=== PATIENT | female | born 1940 | race Caucasian/White ===

== ENCOUNTER 2023-01-25 19:00 | Inpatient (IN) | payer MEDICARE, OTHER ==
[~2023-01-25] VITALS: Ht 157.5 cm; Wt 62.7 kg
[2023-01-25 19:22] VITALS: BP 110/64
--- NOTE | 2023-01-25 19:30 | NUR ---
RN RECEIVED REPORT FROM JOSÉ LEHMAN, FROM [facility]. PATIENT IS ALERT AND ORIENTED X4 AND VITAL SIGNS STABLE. PATIENT ARRIVED IN STABLE CONDITION. FAMILY AND PATIENT ORIENTED TO FLOOR AND REHAB PROGRAM. ADMISSION PENDING. ALL NEEDS MET AT THIS TIME. RN ENDORSED CONTINUATION OF CARE TO DENIS MANSFIELD, FOR THE CONTINUATION OF CARE.
[2023-01-26] MEDS ORDERED: RIVA20TA PO (00:06)
[2023-01-26] MEDS ORDERED: LEVO75TA7 PO (00:06)
[2023-01-26] MEDS ORDERED: METO25TA6 PO (00:06)
[2023-01-26] MEDS ORDERED: SIMV-49 PO (00:06)
[2023-01-26] MEDS ORDERED: FERR325T28 PO (00:06)
[2023-01-26] MEDS ORDERED: CALC500T88 PO (00:06)
[2023-01-26] MEDS ORDERED: OMEP40CA21 PO (00:06)
--- NOTE | 2023-01-26 00:55 | NUR ---
Received report from outgoing RN regarding Pt Evette Bush at beginning of Shift. Family (Daughter and grand-daughter were on bedside. They state that pt. speaks primarily Citizen Of [place]. Family provided number on board on which the can be reached. Pt. family indicate that only medications they would like to continue are Metoprolol, Lipitor, Xarelto (received in ER prior to transfer). 500 mg QID PRN ordered by Dr. Bhatt. Medication reconciliation started and On-Call physician notified at about 0015
[2023-01-26 04:51] VITALS: BP 127/62
--- NOTE | 2023-01-26 06:27 | NUR ---
Per on-call MD, AM provider can complete Med reconciliation
[2023-01-26 08:00] VITALS: BP 130/62
--- NOTE | 2023-01-26 09:32 | NUR ---
0700-Recd patient in bed, asleep, no respiratory distress. Patient wakes up on verbal commands, denies pain or discomfort. VSS, no s/s of hypo/HTN. Call light at reach and encouraged to use it every time help is needed. 0930-Patient ate breakfast, dennis. well, denies GI discomfort, no swallowing problems observed, speech clear. Supervision provided as needed. 0945-Patient was evaluated by PT, per PT patient did really well. Patient actively participated during therapy evaluation, ambulated with FWW and PT's close supervision. Fall precautions reminders provided, a clutter free/safe safe environment ensured.
[2023-01-26] MEDS ORDERED: RALO60TA PO (14:51)
[2023-01-26 15:58] VITALS: BP 148/65
[2023-01-26] MEDS: ACETAMINOPHEN ES 500 MG TABLET PO PRN (16:19)
[2023-01-26] MEDS: RIVAROXABAN 10 MG TABLET PO SCH (17:10)
[2023-01-26] MEDS: METOPROLOL TARTRATE 25 MG TABLET PO SCH ×2 (17:11→23:25)
[2023-01-26] MEDS: SIMVASTATIN 40 MG TABLET PO SCH (17:13)
--- NOTE | 2023-01-26 18:32 | NUR ---
1055-Orders finalized by . Patient was assessed and eval. by rehab for PT/OT skilled services. Patient was also seen by ST. Patient tolerated meals/oral intake well with no swallowing problems observed. Supervision and assist provided during meal times. Aspiration precautions observed. Patient with BRP, assisted to the restroom as needed. All needs anticipated and met. Fall precautions observed.
[2023-01-26 20:32] VITALS: BP 121/54
[2023-01-27 04:30] VITALS: BP 139/73
[2023-01-27] MEDS: METOPROLOL TARTRATE 25 MG TABLET PO SCH ×3 (05:52→17:21)
[2023-01-27] MEDS: PANTOPRAZOLE SODIUM 40 MG TABLET.DR PO SCH (06:28)
[2023-01-27] MEDS: LEVOTHYROXINE SODIUM 75 MCG TABLET PO SCH (06:28)
[2023-01-27 07:41] VITALS: BP 139/67
[2023-01-27 08:25] LABS: *BILIRUBIN,URIN NEGATIVE (NEGATIVE); *BLOOD, URINE 2+ (NEGATIVE); *CLARITY,URINE CLEAR (CLEAR); *COLOR,URINE Other (YELLOW); *KETONES,URINE 1+ (NEGATIVE); LEUKOCYTE ESTERASE ,URINE 2+ (NEGATIVE); NITRITE, URINE POSITIVE (NEGATIVE); PH,URINE 7.5 (5.0-8.0); UGLUCOSE NEGATIVE (NEGATIVE)
[2023-01-27] MEDS: ACETAMINOPHEN ES 500 MG TABLET PO PRN (08:54)
[2023-01-27] MEDS: FERROUS SULFATE 325 MG TABEC PO SCH (08:55)
[2023-01-27 09:00] LABS: HEMATOCRIT 33.2 % (31.2-41.9); MEAN CORPUSCULAR HEMOGLOBIN 29.4 uug (24.7-32.8); MEAN CORPUSCULAR VOLUME 92.5 fL (75.5-95.3); PLATELET COUNT (AUTO) 302 K/uL (179-408)
--- NOTE | 2023-01-27 10:46 | NUR ---
INTERDISCIPLINARY TEAM CONFERENCE
[2023-01-27] MEDS: CEphaleXIN 250 MG CAPSULE PO SCH ×2 (11:28→22:50)
[2023-01-27 12:22] LABS: CREATININE 0.8 mg/dL (0.6-1.3); POTASSIUM 3.6 mmol/L (3.5-5.1)
[2023-01-27 15:20] VITALS: BP 121/71
[2023-01-27] MEDS: SIMVASTATIN 40 MG TABLET PO SCH (17:21)
[2023-01-27] MEDS: RIVAROXABAN 10 MG TABLET PO SCH (17:26)
[2023-01-27] MEDS: GLUCERNA SHAKE 237 ML CAN PO SCH (17:27)
[2023-01-27] MEDS: RALOXIFENE HCL 60 MG TABLET PO SCH (17:35)
[2023-01-27 18:34] LABS: BACTERIA,URINE FEW /HPF (NONE SEEN)
[2023-01-27 18:35] LABS: SQUAMOUS EPITHELIAL CELL,UR FEW /HPF (NONE SEEN)
[2023-01-27 20:00] VITALS: BP 128/75
[2023-01-27] MEDS ORDERED: CEphaleXIN 250 MG CAPSULE ONE (22:48)
--- NOTE | 2023-01-27 22:52 | NUR ---
Keflex 250 mg i cap oral initiated for UTI. Will monitor possible adverse reaction.
[2023-01-28] MEDS: METOPROLOL TARTRATE 25 MG TABLET PO SCH ×4 (00:23→18:22)
[2023-01-28 04:00] VITALS: BP 105/31
[2023-01-28] MEDS ORDERED: CEphaleXIN 250 MG CAPSULE ONE (04:13)
[2023-01-28] MEDS: CEphaleXIN 250 MG CAPSULE PO SCH ×4 (05:17→21:00)
[2023-01-28] MEDS: LEVOTHYROXINE SODIUM 75 MCG TABLET PO SCH (05:19)
[2023-01-28] MEDS: PANTOPRAZOLE SODIUM 40 MG TABLET.DR PO SCH (05:19)
[2023-01-28 06:43] LABS: HEMATOCRIT 33.3 % (31.2-41.9); MEAN CORPUSCULAR HEMOGLOBIN 30.2 uug (24.7-32.8); MEAN CORPUSCULAR VOLUME 92.8 fL (75.5-95.3); PLATELET COUNT (AUTO) 327 K/uL (179-408)
[2023-01-28 07:27] LABS: CARBON DIOXIDE 26 mmol/L (21-32); CHLORIDE 102 mmol/L (98-107); CREATININE 0.8 mg/dL (0.6-1.3); GLUCOSE 105 mg/dL (74-106); PHOSPHOROUS 3.6 mg/dL (2.5-4.9); POTASSIUM 3.6 mmol/L (3.5-5.1); UREA NITROGEN, BLOOD 17 mg/dL (7-18)
[2023-01-28 07:46] VITALS: BP 114/74
[2023-01-28] MEDS: GLUCERNA SHAKE 237 ML CAN PO SCH ×2 (08:06→17:39)
[2023-01-28] MEDS: RALOXIFENE HCL 60 MG TABLET PO SCH (09:55)
[2023-01-28] MEDS: FERROUS SULFATE 325 MG TABEC PO SCH (09:55)
[2023-01-28] MEDS ORDERED: SENNOSIDES 1 TABLET PO PRN (10:15)
[2023-01-28] MEDS ORDERED: BISACODYL 10 MG SUPP.RECT RC PRN (10:15)
--- NOTE | 2023-01-28 10:31 | NUR ---
INDIVIDUALIZED PLAN OF CARE
--- NOTE | 2023-01-28 11:25 | NUR ---
Catalina from Neuro at pt's bedside, noted pt's Right ankle in pain on movement. Blaise Marquez NP already ordered an Xray. Will hold off on PT until Xray results are in. Will ice and elevate. Catalina noted that pt has Expressive Aphasia, calling Catalina's flashlight her friend and Catalina's cell phone her neighbor. Translated via pt's grandson Nelson.
--- NOTE | 2023-01-28 12:40 | NUR ---
My NIHSS score was 5 and others scored 0 and 2. Pt's grandson, Nelson, assisted in translating during test. After results I spoke with Gisell GUAN who confirmed what Catalina from Neuro said and what I found, that the pt has SEVERE APHASIA. Gisell stated that patient does seem to be improving, but that she is having speech and cognitive issues. I also spoke to an RN that had the pt a few days ago and her status seems unchanged. No signs of BEFAST noted at this time except the speech issues as discussed above. Will continue to monitor.
--- NOTE | 2023-01-28 14:58 | NUR ---
Per PT pt threw up a small amount just now. Nadia PT said that it was a little green, but no pill was observed. She had just taken her Keflex pill which has a green outside. Will continue to monitor.
[2023-01-28 16:07] VITALS: BP 132/58
[2023-01-28] MEDS ORDERED: REMEDY ESSENTIAL ZINC PASTE 113 GM TOP PRN (17:30)
[2023-01-28] MEDS: SIMVASTATIN 40 MG TABLET PO SCH (18:21)
[2023-01-28] MEDS: RIVAROXABAN 10 MG TABLET PO SCH (18:21)
[2023-01-28 20:00] VITALS: BP 131/48
[2023-01-29] MEDS: METOPROLOL TARTRATE 25 MG TABLET PO SCH ×5 (00:07→23:46)
[2023-01-29 03:45] VITALS: BP 119/69
[2023-01-29] MEDS: PANTOPRAZOLE SODIUM 40 MG TABLET.DR PO SCH (05:31)
[2023-01-29] MEDS: CEphaleXIN 250 MG CAPSULE PO SCH ×3 (05:31→21:03)
[2023-01-29] MEDS: LEVOTHYROXINE SODIUM 75 MCG TABLET PO SCH (05:31)
--- NOTE | 2023-01-29 05:42 | NUR ---
Slept well. No complaint presented all night. No significant event reported. VSS.
[2023-01-29 07:57] VITALS: BP 104/51
[2023-01-29] MEDS: RALOXIFENE HCL 60 MG TABLET PO SCH (08:22)
[2023-01-29] MEDS: GLUCERNA SHAKE 237 ML CAN PO SCH ×2 (08:22→17:09)
[2023-01-29] MEDS: FERROUS SULFATE 325 MG TABEC PO SCH (08:22)
[2023-01-29 14:30] VITALS: BP 39/64
[2023-01-29] MEDS: SIMVASTATIN 40 MG TABLET PO SCH (17:37)
[2023-01-29] MEDS: RIVAROXABAN 10 MG TABLET PO SCH (17:38)
--- NOTE | 2023-01-29 17:52 | NUR ---
0730-Rec'd patient in bed, asleep, able to wake up; patient able to wake up on verbal commands, Turkmen speaking, but able to understand Lebanese/simple questions asked. No respiratory distress, patient denies pain. Safety measures in place and call light at reach. 0900-Scheduled medications administered as ordered. No ASE noted; VSS, patient still eating breakfast and been assisted by her daughter; assist offered as needed. Routine rounds and frequent visual checks done. Encouraged to use call light for help every time needed. 1000-Patient OOB to her therapy/rehab session, patient ambulatory, cooperative and actively able to participate in her therapy. Fall precautions observed. A safe environment provided. 1300-Patient in room having lunch, daughter at bedside. 1730-Patient having dinner/food brought from outside with her daughter and another visitor. Patient in stable baseline status, no MATTHEW or unusual findings/and/or observations during shift. Assist as needed.
[2023-01-29 20:00] VITALS: BP 132/44
[2023-01-29 20:57] VITALS: BP 125/51
[2023-01-30 04:00] VITALS: BP 129/69
[2023-01-30 04:05] VITALS: BP 129/69
[2023-01-30] MEDS: CEphaleXIN 250 MG CAPSULE PO SCH ×3 (05:26→21:58)
[2023-01-30] MEDS: METOPROLOL TARTRATE 25 MG TABLET PO SCH ×3 (05:26→18:21)
--- NOTE | 2023-01-30 05:55 | NUR ---
AAOx3-4 Admitted for change in mental status, Acute CVA with expressive aphasia. Patient able to make needs known. VSS. Tolerated po meds well. Continent of bowel and bladder. Ambulates to the BR with assist. Denies any pain nor any discomfort. Will monitor patient. On ABT for UTI. No acute distress noted. Call loera within reach.
[2023-01-30] MEDS: LEVOTHYROXINE SODIUM 75 MCG TABLET PO SCH (06:04)
[2023-01-30] MEDS: PANTOPRAZOLE SODIUM 40 MG TABLET.DR PO SCH (06:04)
[2023-01-30 07:46] VITALS: BP 115/41
[2023-01-30] MEDS: FERROUS SULFATE 325 MG TABEC PO SCH (08:34)
[2023-01-30] MEDS: RALOXIFENE HCL 60 MG TABLET PO SCH (08:35)
[2023-01-30] MEDS: GLUCERNA SHAKE 237 ML CAN PO SCH ×2 (08:35→18:21)
[2023-01-30 16:33] VITALS: BP 124/46
[2023-01-30] MEDS: SIMVASTATIN 40 MG TABLET PO SCH (18:19)
[2023-01-30] MEDS: RIVAROXABAN 10 MG TABLET PO SCH (18:20)
[2023-01-30 20:00] VITALS: BP 132/76
--- NOTE | 2023-01-30 20:06 | NUR ---
RN RECEIVED REPORT FROM DENIS MCDONALD, [facility]. PATIENT IS ALERT AND ORIENTED X4 AND VITAL SIGNS STABLE. PATIENT TOLERATES PO MEDICATIONS AND DIET WELL. PATIENT PARTICIPATES WITH PHYSICAL AND OCCUPATIONAL THERAPY SCHEDULED. PATIENT'S FAMILY VISITED. NO ACUTE DISTRESS NOTED. ALL NEEDS MET AT THIS TIME. RN ENDORSED CONTINUATION OF CARE TO DENIS CHARLES, FOR THE CONTINUATION OF CARE.
[2023-01-31 04:00] VITALS: BP 124/64
[2023-01-31] MEDS: METOPROLOL TARTRATE 25 MG TABLET PO SCH ×4 (05:57→17:47)
[2023-01-31] MEDS: CEphaleXIN 250 MG CAPSULE PO SCH ×3 (05:57→22:00)
[2023-01-31] MEDS: PANTOPRAZOLE SODIUM 40 MG TABLET.DR PO SCH (06:38)
[2023-01-31] MEDS: LEVOTHYROXINE SODIUM 75 MCG TABLET PO SCH (06:38)
--- NOTE | 2023-01-31 07:39 | NUR ---
Patient slept well, no acute distress noted. Stable throughout the shift. Needs assessed and attended to.
[2023-01-31] MEDS: GLUCERNA SHAKE 237 ML CAN PO SCH ×2 (08:09→17:44)
[2023-01-31 08:16] VITALS: BP 130/85
[2023-01-31] MEDS: RALOXIFENE HCL 60 MG TABLET PO SCH (09:42)
[2023-01-31] MEDS: FERROUS SULFATE 325 MG TABEC PO SCH (09:42)
[2023-01-31 14:57] VITALS: BP 107/61
[2023-01-31] MEDS: SIMVASTATIN 40 MG TABLET PO SCH (17:37)
[2023-01-31] MEDS: MIRALAX 17 GM POWD.PACK PO SCH (17:37)
[2023-01-31] MEDS: RIVAROXABAN 10 MG TABLET PO SCH (17:44)
[2023-01-31 20:11] VITALS: BP 122/51
[2023-02-01 04:11] VITALS: BP 133/52
[2023-02-01] MEDS: CEphaleXIN 250 MG CAPSULE PO SCH ×3 (06:00→21:35)
[2023-02-01] MEDS: LEVOTHYROXINE SODIUM 75 MCG TABLET PO SCH (06:07)
[2023-02-01] MEDS: PANTOPRAZOLE SODIUM 40 MG TABLET.DR PO SCH (06:07)
[2023-02-01] MEDS: METOPROLOL TARTRATE 25 MG TABLET PO SCH ×4 (06:07→17:56)
[2023-02-01] MEDS: GLUCERNA SHAKE 237 ML CAN PO SCH ×2 (08:09→17:00)
[2023-02-01 08:35] VITALS: BP 138/50
[2023-02-01] MEDS: RALOXIFENE HCL 60 MG TABLET PO SCH (09:13)
[2023-02-01] MEDS: MIRALAX 17 GM POWD.PACK PO SCH (09:13)
[2023-02-01] MEDS: FERROUS SULFATE 325 MG TABEC PO SCH (09:13)
[2023-02-01] MEDS: ACETAMINOPHEN ES 500 MG TABLET PO PRN ×2 (12:21→19:10)
[2023-02-01 15:48] VITALS: BP 108/60
[2023-02-01] MEDS: METHYL SALICYLATE/MENTHOL CREAM 28 GM TUBE TOP SCH (17:47)
[2023-02-01] MEDS: SIMVASTATIN 40 MG TABLET PO SCH (17:50)
[2023-02-01] MEDS: RIVAROXABAN 10 MG TABLET PO SCH (17:50)
[2023-02-01 20:00] VITALS: BP 113/51
[2023-02-02] MEDS: METOPROLOL TARTRATE 25 MG TABLET PO SCH ×4 (00:09→17:49)
[2023-02-02 04:00] VITALS: BP 128/78
[2023-02-02] MEDS: CEphaleXIN 250 MG CAPSULE PO SCH ×2 (05:47→14:33)
[2023-02-02] MEDS: LEVOTHYROXINE SODIUM 75 MCG TABLET PO SCH (05:48)
[2023-02-02] MEDS: PANTOPRAZOLE SODIUM 40 MG TABLET.DR PO SCH (05:48)
--- NOTE | 2023-02-02 07:11 | NUR ---
No significant event reported all night. All needs attended and met. Continue current rehab plan of care.
[2023-02-02 07:55] VITALS: BP 122/63
[2023-02-02] MEDS: GLUCERNA SHAKE 237 ML CAN PO SCH ×2 (08:00→17:00)
[2023-02-02] MEDS: MIRALAX 17 GM POWD.PACK PO SCH (09:04)
[2023-02-02] MEDS: FERROUS SULFATE 325 MG TABEC PO SCH (09:05)
[2023-02-02] MEDS: METHYL SALICYLATE/MENTHOL CREAM 28 GM TUBE TOP SCH ×3 (09:06→17:49)
[2023-02-02] MEDS: RALOXIFENE HCL 60 MG TABLET PO SCH (09:09)
[2023-02-02 16:01] VITALS: BP 122/48
[2023-02-02] MEDS: RIVAROXABAN 10 MG TABLET PO SCH (17:48)
[2023-02-02] MEDS: SIMVASTATIN 40 MG TABLET PO SCH (17:48)
[2023-02-02] MEDS: ACETAMINOPHEN ES 500 MG TABLET PO PRN (17:48)
[2023-02-02 17:49] VITALS: BP 140/67
--- NOTE | 2023-02-02 18:00 | NUR ---
CODE STROKE CALLED at 175: Pt's granddaughter, Becca, was at bedside translating that pt was having a severe headache 5-6/10 radiating from top of her head down to the posterior base of her skull. Last well known time was rounding at 1700. I consulted my charge nurse, took vitals, and performed the NIHSS. Because the pt is here for CVA and hasn't had a headache in the last 3 days, I decided to call a code stoke, the charge nurse agreed. From the Stroke class we just took the teacher said, When in doubt, call a code stroke, better safe than sorry. Notified Dr. Mcduffie at 175.
--- NOTE | 2023-02-02 18:40 | NUR ---
NEUROLOGISTS: At [address] Otoniel Alvarado, neurologist, on the phone. Read him pt's admission history, told him what happened and read the current CT report. He advised that the new CT was showing evidence of the known stroke and to treat the Headache with Tylenol, already given. Gave him Dr. Mcduffie's # and Dr. Alvarado said that he would give him a call. 1853 Tele Stroke Neurologist saw the pt in her room via video. Assessment performed, he also advised to just manage pt's headache.
[2023-02-02 18:56] LABS: HEMATOCRIT 32.7 % (31.2-41.9); MEAN CORPUSCULAR HEMOGLOBIN 29.9 uug (24.7-32.8); MEAN CORPUSCULAR VOLUME 90.6 fL (75.5-95.3); PLATELET COUNT (AUTO) 345 K/uL (179-408)
[2023-02-02 19:02] LABS: ALANINE AMINOTRANSFERASE 22 U/L (14-59); ALKALINE PHOSPHATASE 72 U/L (50-136); ASPARTATE AMINOTRANSFERASE 29 U/L (15-37); BILIRUBIN,TOTAL 0.2 mg/dL (0.2-1.0); CARBON DIOXIDE 25 mmol/L (21-32); CHLORIDE 102 mmol/L (98-107); CHOLESTEROL 109 mg/dL (<200); CREATININE 0.9 mg/dL (0.6-1.3); GLUCOSE 131 mg/dL (74-106); HDL CHOLESTEROL 45 mg/dL (40-60); POTASSIUM 3.6 mmol/L (3.5-5.1); TRIGLYCERIDES 90 MG/DL (30-150); UREA NITROGEN, BLOOD 14 mg/dL (7-18)
[2023-02-02 19:38] LABS: THYROID STIMULATING HORMONE 1.033 mIU/mL (0.358-3.740)
[2023-02-02] MEDS ORDERED: BLOOD SUGAR DIAGNOSTIC 1 EACH STRIP VI SCH (21:00)
--- NOTE | 2023-02-02 21:00 | NUR ---
Pt is being discharged from Rehab to Tele; pt is transferred to room 308
[2023-02-02] MEDS ORDERED: POLY17PO4 PO (21:09)
[2023-02-02] MEDS ORDERED: PANT40TA49 PO (21:09)
[2023-02-02] MEDS ORDERED: SENN8.6T19 PO (21:09)
[2023-02-02] MEDS ORDERED: NUT.237L36 PO (21:09)
[2023-02-02] MEDS ORDERED: CEPH250C PO (21:21)
[2023-02-02] MEDS ORDERED: SENNOSIDES 1 TABLET PO PRN (22:00)
[2023-02-03] MEDS ORDERED: BLOOD SUGAR DIAGNOSTIC 1 EACH STRIP VI SCH
[2023-02-03] MEDS ORDERED: PANTOPRAZOLE SODIUM 40 MG TABLET.DR PO SCH (09:00)
[2023-02-03] MEDS ORDERED: GLUCERNA 1.2 1000ML LIQUID PO SCH (09:00)
[2023-02-03] MEDS ORDERED: RALOXIFENE HCL 60 MG TABLET PO SCH (09:00)
[2023-02-03] MEDS ORDERED: MIRALAX 17 GM POWD.PACK PO SCH (09:00)
[2023-02-05] MEDS ORDERED: SENN-175 PO (13:47)
[2023-02-05] MEDS ORDERED: POLY17PO4 PO (13:47)
[2023-02-05] MEDS ORDERED: ATOR10TA PO (13:47)
[2023-02-05] MEDS ORDERED: LEVO75TA7 PO (13:47)
[2023-02-05] MEDS ORDERED: RIVA15TA PO (13:47)
[2023-02-05] MEDS ORDERED: RALO60TA PO (13:47)
[2023-02-05] MEDS ORDERED: NUT.237L36 PO (13:47)
[2023-02-05] MEDS ORDERED: PANT40TA49 PO (13:47)
[2023-02-05] MEDS ORDERED: METO50TA16 PO (13:47)
== END 2023-02-02 21:00 | disposition short-term general hospital (02) | DRG 56 ==
PROVIDERS: ADMIT Physical Medicine & Rehabilitation Pain Medicine; ATTEND Physical Medicine & Rehabilitation Pain Medicine
DX: I69.320 Aphasia following cerebral infarction (principal); I21.A1 Myocardial infarction type 2; J96.01 Acute respiratory failure with hypoxia; D68.59 Other primary thrombophilia; I48.20 Chronic atrial fibrillation, unspecified; I50.30 Unspecified diastolic (congestive) heart failure; G93.49 Other encephalopathy; N39.0 Urinary tract infection, site not specified; R51.9 Headache, unspecified; D64.9 Anemia, unspecified; E03.9 Hypothyroidism, unspecified; E78.5 Hyperlipidemia, unspecified; K21.9 Gastro-esophageal reflux disease without esophagitis; I11.0 Hypertensive heart disease with heart failure; I69.398 Other sequelae of cerebral infarction; B96.20 Unspecified Escherichia coli [E. coli] as the cause of diseases classified elsewhere; I25.10 Atherosclerotic heart disease of native coronary artery without angina pectoris; I65.23 Occlusion and stenosis of bilateral carotid arteries; Z95.1 Presence of aortocoronary bypass graft; Z95.5 Presence of coronary angioplasty implant and graft; S93.401A Sprain of unspecified ligament of right ankle, initial encounter; X58.XXXA Exposure to other specified factors, initial encounter; Y93.9 Activity, unspecified; Y92.9 Unspecified place or not applicable
CPT/HCPCS: 36415; 70450; 71045; 73630; 83735; 84100; 84443; 84484; 85025; 85651; 85730; 93005; 97535-GO-CO; A9150

== ENCOUNTER 2023-02-02 20:58 | Inpatient (IN) | payer MEDICARE, OTHER ==
[~2023-02-02] VITALS: Ht 157.5 cm; Wt 62.1 kg
[2023-02-02 20:00] VITALS: BP 107/47
[~2023-02-02 20:58] MED LIST: CALC500T88 PO; FERR325T28 PO; LEVO75TA7 PO; METO25TA6 PO; OMEP40CA21 PO; RALO60TA PO; RIVA20TA PO; SIMV-49 PO
[2023-02-02] MEDS ORDERED: POLY17PO4 PO (21:09)
[2023-02-02] MEDS ORDERED: NUT.237L36 PO (21:09)
[2023-02-02] MEDS ORDERED: SENN8.6T19 PO (21:09)
[2023-02-02] MEDS ORDERED: PANT40TA49 PO (21:09)
[2023-02-02] MEDS ORDERED: CEPH250C PO (21:21)
--- NOTE | 2023-02-02 21:48 | NUR ---
Pt passed Oksana swallow test; pt has pre existing expressive aphasia Addendum: 02/02/23 at 2149 by ERIBERTO DONNELLY RN Amended: Links added.
[2023-02-03] VITALS: BP 101/56
[2023-02-03] MEDS ORDERED: ACETAMINOPHEN 325 MG TABLET PO PRN
--- NOTE | 2023-02-03 01:00 | NUR ---
removed right forearm H/L apply pressure cover with gauze and apply tape . patient with left upper arm MIDLINE CDI .
[2023-02-03] MEDS ORDERED: MIRALAX 17 GM POWD.PACK PO PRN (01:15)
[2023-02-03] MEDS ORDERED: SENNOSIDES 1 TABLET PO PRN (01:15)
[2023-02-03 05:43] VITALS: BP 143/64
--- NOTE | 2023-02-03 06:57 | NUR ---
Patient rested well in between carre; hemodynamically and neurologically stable; NIHS remains 3; pt assisted to meet hygiene needs; bed alarm remains on; Dr Mcduffie's other orders from previous encounter transferred to this admission; continue to monitor; continue plan of care.
--- NOTE | 2023-02-03 07:53 | NUR ---
home meds not reconciled. made aware.
[2023-02-03 07:54] LABS: HEMATOCRIT 33.4 % (31.2-41.9); MEAN CORPUSCULAR HEMOGLOBIN 30.3 uug (24.7-32.8); MEAN CORPUSCULAR VOLUME 90.9 fL (75.5-95.3); PLATELET COUNT (AUTO) 355 K/uL (179-408)
[2023-02-03] MEDS ORDERED: CEphaleXIN 250 MG CAPSULE PO ONE (08:15)
[2023-02-03] MEDS ORDERED: RALOXIFENE HCL 60 MG TABLET PO SCH (09:00)
[2023-02-03] MEDS ORDERED: SENNOSIDES 1 TABLET PO SCH (09:00)
[2023-02-03] MEDS ORDERED: GLUCERNA 1.2 1000ML LIQUID PO SCH (09:00)
[2023-02-03 09:13] LABS: ALANINE AMINOTRANSFERASE 17 U/L (14-59); ALKALINE PHOSPHATASE 74 U/L (50-136); ASPARTATE AMINOTRANSFERASE 28 U/L (15-37); BILIRUBIN,TOTAL 0.2 mg/dL (0.2-1.0); CARBON DIOXIDE 26 mmol/L (21-32); CHLORIDE 103 mmol/L (98-107); CREATININE 0.8 mg/dL (0.6-1.3); GLUCOSE 97 mg/dL (74-106); MAGNESIUM 2.1 mg/dL (1.8-2.4); PHOSPHOROUS 4.4 mg/dL (2.5-4.9); POTASSIUM 3.4 mmol/L (3.5-5.1); TOTAL PROTEIN, SERUM 7.2 g/dL (6.4-8.2); UREA NITROGEN, BLOOD 16 mg/dL (7-18)
[2023-02-03 09:54] VITALS: BP 126/68
[2023-02-03] MEDS: METOPROLOL TARTRATE 25 MG TABLET PO SCH ×3 (09:55→17:35)
[2023-02-03] MEDS: FERROUS SULFATE 325 MG TABEC PO SCH (09:56)
[2023-02-03] MEDS: PANTOPRAZOLE SODIUM 40 MG TABLET.DR PO SCH (09:56)
[2023-02-03] MEDS: CALCIUM CARBONATE 500 MG TABLET PO SCH ×2 (09:56→17:35)
[2023-02-03] MEDS: LEVOTHYROXINE SODIUM 75 MCG TABLET PO SCH (09:58)
[2023-02-03] MEDS: RALOXIFENE HCL 60 MG TABLET PO SCH (09:58)
[2023-02-03] MEDS: MIRALAX 17 GM POWD.PACK PO SCH (09:59)
[2023-02-03] MEDS: GLUCERNA SHAKE 237 ML CAN PO SCH ×2 (09:59→17:00)
[2023-02-03 11:32] VITALS: BP 125/69
[2023-02-03] MEDS ORDERED: CEphaleXIN 250 MG CAPSULE PO SCH (14:00)
[2023-02-03 16:00] VITALS: BP 127/64
[2023-02-03] MEDS ORDERED: RIVAROXABAN 15 MG TABLET PO SCH (18:00)
--- NOTE | 2023-02-03 18:32 | NUR ---
shift note. pt aox2-3. aphasic. in no acute distress. vitals wnl. pt/ot/st cleared the pt. pt was able to walk with fww with steady gait. no dysphagia noted. nihss-3. stroke education was given to pt and family. denies any pain. estiven midline patent and intact. safety measure in placed all needs attended.
--- NOTE | 2023-02-03 20:00 | NUR ---
rounds made patient in bed watching tv. awake and alert . no distress breathing even and unlabored . advised patient to call for help .
--- NOTE | 2023-02-03 20:45 | NUR ---
right forearm bruising noted , applied hot packs elevated right upper arm with pillow . wound care consulted .
[2023-02-03 20:53] VITALS: BP 118/80
[2023-02-03] MEDS ORDERED: ATORVASTATIN 10 MG TABLET PO SCH (21:00)
[2023-02-03] MEDS: ATORVASTATIN 10 MG TABLET PO SCH (21:12)
--- NOTE | 2023-02-03 21:20 | NUR ---
patient took medication tolerated with water . patient in bed awake ,alert able to follow commands. no respiratory distress noted breathing even and unlabored . advised patient to call for assistance and not to get oob by herself call light placed with in reach .
--- NOTE | 2023-02-03 22:00 | NUR ---
NEURO ASSESSMENT DONE (NIHHS score is 3 )patient able to follow simple instructions, aaox2, maex4. no facial drooping no slurring of speech patents is verbally responsive .
[2023-02-04 00:30] VITALS: BP 131/59
[2023-02-04] MEDS: METOPROLOL TARTRATE 25 MG TABLET PO SCH ×2 (01:00→05:48)
[2023-02-04 04:16] VITALS: BP 142/66
[2023-02-04] MEDS: LEVOTHYROXINE SODIUM 75 MCG TABLET PO SCH (06:05)
[2023-02-04] MEDS: PANTOPRAZOLE SODIUM 40 MG TABLET.DR PO SCH (06:05)
[2023-02-04 08:16] VITALS: BP 117/55
[2023-02-04] MEDS: RALOXIFENE HCL 60 MG TABLET PO SCH (08:17)
[2023-02-04] MEDS: MIRALAX 17 GM POWD.PACK PO SCH (08:17)
[2023-02-04] MEDS: METOPROLOL TARTRATE 50 MG TABLET PO SCH ×2 (08:17→20:31)
[2023-02-04] MEDS: FERROUS SULFATE 325 MG TABEC PO SCH (08:17)
[2023-02-04] MEDS: CALCIUM CARBONATE 500 MG TABLET PO SCH ×2 (08:17→17:36)
[2023-02-04] MEDS: GLUCERNA SHAKE 237 ML CAN PO SCH ×2 (08:18→17:00)
[2023-02-04] MEDS ORDERED: METOPROLOL TARTRATE 25 MG TABLET PO SCH (09:00)
--- NOTE | 2023-02-04 10:35 | NUR ---
dc telemetry per
--- NOTE | 2023-02-04 10:35 | NUR ---
pt aox2-3. in no acute distress. nihss 3. pt ambulatory with minimal assist. able to follow commands. no difficulty of swallowing noted. no facial drooping. denies any pain or sob.
[2023-02-04 11:04] VITALS: BP 129/54
[2023-02-04 15:21] VITALS: BP 108/47
--- NOTE | 2023-02-04 17:00 | NUR ---
shift notes. aox2-3. in no acute distress noted. denies any pain or sob. able to swallow whole pill w/ no difficulty. nihss score-3. stroke education was given to pt and family. MRS- 3, pt is on Xarelto 20mg for anti thrombotic therapy. safety measure in placed. call light with reach. possible dc nelsy per cm.
[2023-02-04] MEDS ORDERED: RIVAROXABAN 15 MG TABLET PO SCH (18:00)
--- NOTE | 2023-02-04 19:30 | NUR ---
received patient from day shift RN .patient in room visited by daughter and granddaughter.daughter questions answered and updated with patient condition .patient alert awake and oriented able to follow commands and able to verbalized needs , when asked patient deneis pain no respiratory diistress noted on room air .
--- NOTE | 2023-02-04 20:00 | NUR ---
patient in the hallway walking using FWW escorted by daughter and granddaughter .
[2023-02-04] MEDS: ATORVASTATIN 10 MG TABLET PO SCH (20:25)
--- NOTE | 2023-02-04 20:31 | NUR ---
due po medication given metoprolol v/s done bp 117/55 hr 88 . patient able to tolerated po medication with water .
[2023-02-04 20:33] VITALS: BP 117/55
--- NOTE | 2023-02-04 22:00 | NUR ---
NIHHS stroke assessment done patient alert and awake ,answers questions correctly normal gaze able to moved bilateral upper and lower extremities no drift .NIHHS SCRE IS 3.
--- NOTE | 2023-02-05 02:00 | NUR ---
patient in bed asleep ,no distress noted .
--- NOTE | 2023-02-05 04:30 | NUR ---
escorted to the bathroom voided steady of gait 1 person assist .
[2023-02-05] MEDS: LEVOTHYROXINE SODIUM 75 MCG TABLET PO SCH (06:23)
[2023-02-05] MEDS: PANTOPRAZOLE SODIUM 40 MG TABLET.DR PO SCH (06:23)
[2023-02-05 06:33] LABS: HEMATOCRIT 31.9 % (31.2-41.9); MEAN CORPUSCULAR HEMOGLOBIN 30.1 uug (24.7-32.8); MEAN CORPUSCULAR VOLUME 91.4 fL (75.5-95.3); PLATELET COUNT (AUTO) 347 K/uL (179-408)
[2023-02-05 06:52] LABS: CARBON DIOXIDE 26 mmol/L (21-32); CHLORIDE 105 mmol/L (98-107); CREATININE 0.8 mg/dL (0.6-1.3); GLUCOSE 99 mg/dL (74-106); PHOSPHOROUS 4.7 mg/dL (2.5-4.9); POTASSIUM 3.8 mmol/L (3.5-5.1); UREA NITROGEN, BLOOD 13 mg/dL (7-18)
--- NOTE | 2023-02-05 07:15 | NUR ---
bedside report given to dayshift RN patient in bed awake and alert .
[2023-02-05 07:30] VITALS: BP 116/62
[2023-02-05] MEDS: MIRALAX 17 GM POWD.PACK PO SCH (08:25)
[2023-02-05] MEDS: FERROUS SULFATE 325 MG TABEC PO SCH (08:26)
[2023-02-05] MEDS: CALCIUM CARBONATE 500 MG TABLET PO SCH ×2 (08:26→16:44)
[2023-02-05] MEDS: METOPROLOL TARTRATE 50 MG TABLET PO SCH (08:27)
[2023-02-05] MEDS: GLUCERNA SHAKE 237 ML CAN PO SCH (08:28)
[2023-02-05] MEDS: RALOXIFENE HCL 60 MG TABLET PO SCH (08:28)
--- NOTE | 2023-02-05 11:29 | NUR ---
WOUND CARE CONSULT: DISCUSSED PHOTO OR RT UPPER ARM DISCOLORATION WITH NURSING STAFF. PER NURSE, NO CONSULT NEEDED AT THIS TIME. CURRENT FINA SCORE IS 19. WILL SEE PRN.
[2023-02-05 11:35] VITALS: BP 138/70
--- NOTE | 2023-02-05 11:50 | NUR ---
0730-Rec'd patient in bed, awake, alert and oriented. Physical shift exchange rounds done, patient is able to verbalize simple needs and answer questions asked. Patient denies pain, and asked if her daughter will be coming today and at what time. Informed patient her daughter always visits her, it is too early right now and most likely she will be coming later on during the shift. Patient smiling, no respiratory distress noted and denies any pain. Safety measures in place. Call light at reach, encouraged to use it for help every time needed with good understanding (patient speaks multiple languages: Tunisian, Yakut and some Mongolian) 0900-Scheduled medication administered, no ASE noted. Oral fluids encouraged as dennis. and taken well. Aspiration precautions observed; HOB elevated, patient still eating breakfast, assist and supervision provided. Patient pending discharge today. 0930-Daughter visiting patient and at bedside. SS staff in the room speaking to patient and daughter.
[2023-02-05] MEDS ORDERED: METO50TA16 PO (13:47)
[2023-02-05] MEDS ORDERED: RIVA15TA PO (13:47)
[2023-02-05] MEDS ORDERED: POLY17PO4 PO (13:47)
[2023-02-05] MEDS ORDERED: LEVO75TA7 PO (13:47)
[2023-02-05] MEDS ORDERED: ATOR10TA PO (13:47)
[2023-02-05] MEDS ORDERED: PANT40TA49 PO (13:47)
[2023-02-05] MEDS ORDERED: NUT.237L36 PO (13:47)
[2023-02-05] MEDS ORDERED: SENN-175 PO (13:47)
[2023-02-05] MEDS ORDERED: RALO60TA PO (13:47)
--- NOTE | 2023-02-05 14:48 | NUR ---
1400-ALL ORDERS HAVE BEEN FINALIZED BY MD AT THIS TIME. PATIENT PENDING TO BE PICKED UP BY HER DAUGHTER-LATOSHA. PATIENT IS STABLE, NO MATTHEW NOTED, DENIES PAIN, NO DISTRESS/SOB NOTED.
[2023-02-05 16:07] VITALS: BP 109/58
--- NOTE | 2023-02-05 17:36 | NUR ---
Patient leaving the building at this time. Accompanied by her daughter- Jessica. All discharge paperwork given as per protocol. Education provided to both, patient and Jessica with good verbal demonstration returned in understanding. Patient left in stable conditions, denied any pain, no respiratory distress noted; patient left clean and neatly groomed. Education emphasized on medication list, S/E, scheduled time with good verbal demonstration from Jessica. All belongings/dentures taken. Inventory list signed.
[2023-02-05] MEDS ORDERED: RIVAROXABAN 15 MG TABLET PO SCH (18:00)
== END 2023-02-05 17:30 | disposition home health service (06) | DRG 64 ==
LOC: TELE3 20:58 → MEDSURG3 02-04 10:48
PROVIDERS: ADMIT Internal Medicine; ATTEND Internal Medicine
DX: I63.512 Cerebral infarction due to unspecified occlusion or stenosis of left middle cerebral artery (principal); I50.31 Acute diastolic (congestive) heart failure; I48.20 Chronic atrial fibrillation, unspecified; N39.0 Urinary tract infection, site not specified; R47.01 Aphasia; R29.703 NIHSS score 3; I48.91 Unspecified atrial fibrillation; I08.3 Combined rheumatic disorders of mitral, aortic and tricuspid valves; D64.9 Anemia, unspecified; Z79.01 Long term (current) use of anticoagulants; Z74.09 Other reduced mobility; I65.23 Occlusion and stenosis of bilateral carotid arteries; I25.10 Atherosclerotic heart disease of native coronary artery without angina pectoris; E78.5 Hyperlipidemia, unspecified; G47.33 Obstructive sleep apnea (adult) (pediatric); S93.401D Sprain of unspecified ligament of right ankle, subsequent encounter; X58.XXXD Exposure to other specified factors, subsequent encounter; F01.50 Vascular dementia, unspecified severity, without behavioral disturbance, psychotic disturbance, mood disturbance, and anxiety; I73.9 Peripheral vascular disease, unspecified; Z86.16 Personal history of COVID-19; Z95.5 Presence of coronary angioplasty implant and graft; Z95.1 Presence of aortocoronary bypass graft; I11.0 Hypertensive heart disease with heart failure; E03.9 Hypothyroidism, unspecified; I25.2 Old myocardial infarction
CPT/HCPCS: 36415; 83735; 84100; 84484; 85025; 93307; 97535-GO-CO; G0378